=== PATIENT | male | born 1930 | race Caucasian/White ===

== ENCOUNTER 2018-01-20 13:08 | Inpatient (IN) ==
[2018-01-20] MEDS ORDERED: SODIUM CHLORIDE 0.9% 500 ML IV STA (13:48)
[2018-01-20] MEDS ORDERED: LEVOFLOXACIN INJ 500 MG in PREMIX 1 EACH IV STA ×2 (13:48→15:11)
[2018-01-20 13:56] LABS: Basophils % 0.3 % (0.0-0.8); Eosinophils # 0.1 10*3/uL (0.0-0.87); Eosinophils % 1.2 % (0.00-10.9); Hematocrit 23.6 VOL% (42.0-52.0); Hemoglobin 7.4 GM/DL (14.0-18.0); Immature Granulocytes % 0.6 %; Immature Granulocytes Absolute 0.04 #; Lymphocytes # 0.8 10*3/uL (1.4-4.0); Lymphocytes % 11.9 % (21.2-54.2); Mean Corpuscular HGB Conc 31.4 GM/DL (32-36); Mean Corpuscular Hemoglobin 34 PG (27-34); Mean Corpuscular Volume 108.8 FL (87-102); Mean Platelet Volume 10.1 FL (9.6-12.0); Monocytes # 0.5 10*3/uL (0.11-0.8); Monocytes % 6.7 % (1.7-12.7); Neutrophils # 5.5 10*3/uL (1.4-7.4); Neutrophils % 79.3 % (38.7-73.9); Platelet Count 224 T/CUMM (130-400); Red Blood Count 2.17 MC/CUMM (3.8-5.5); Red Cell Distribution Width 13.5 % (9.3-17.3); White Blood Count 6.9 T/CUMM (4-12)
[2018-01-20] MEDS ORDERED: ALBUTEROL 2.5 MG/3 ML NEB RESP TX STA (13:57)
[2018-01-20 14:15] LABS: INR 1.1; PT Patient Result 11.3 SECS; Partial Thromboplastin Time 30.7 SECS (0-40)
[2018-01-20 14:16] LABS: Alanine Aminotransferase 14 U/L (16-61); Albumin 2.6 G/DL (3.4-5.0); Alkaline Phosphatase 67 U/L (45-117); Aspartate Amino Transferase 7 U/L (0-37); Blood Urea Nitrogen 35 MG/DL (7-18); Calcium 8.8 MG/DL (8.5-10.1); Glucose 189 MG/DL (74-106); Osmolality,Calculated 289.5 MOS/KG (273-304); Potassium 4.3 MMOL/L (3.5-5.1); Sodium 139 MMOL/L (136-145); Total Protein 6.7 G/DL (6.4-8.3); Troponin I Only < 0.015 NG/ML (0.00-0.045)
[2018-01-20 14:25] LABS: Anisocytosis 1+; Band Neutrophils 20 % (0-10); Eosinophils 1 % (0-10); Lymphocytes 9 % (20-55); Macrocytosis Slight; Platelet Estimate Normal; Segmented Neutrophils 67 % (50-85); Total Cells Counted 100
[2018-01-20] MEDS ORDERED: methylPREDNISolone SOD SUC 125 MG/2 ML VIAL IV STA (15:11)
[2018-01-20] MEDS ORDERED: ACETAMINOPHEN 325 MG TABLET PO PRN (16:27)
[2018-01-20] MEDS ORDERED: DOCUSATE SODIUM 100 MG CAPSULE PO PRN (16:27)
[2018-01-20] MEDS ORDERED: ONDANSETRON 4 MG/2 ML VIAL IV PRN (16:27)
[2018-01-20] MEDS ORDERED: PANTOPRAZOLE 40 MG TABLET PO SCH (16:30)
[2018-01-20] MEDS ORDERED: CHLORPHENIRAMINE PO PRN (16:31)
[2018-01-20] MEDS ORDERED: [UNRECOGNIZED DRUG - OTHER] PO PRN (16:31)
[2018-01-20] MEDS ORDERED: PHENYLEPHRINE PO PRN (16:31)
[2018-01-20] MEDS ORDERED: DOCUSATE/SENNA 50-8.6 MG TABLET PO PRN (16:31)
[2018-01-20] MEDS ORDERED: GLUCAGON 1 MG VIAL IM PRN (16:37)
[2018-01-20] MEDS ORDERED: DEXTROSE 50% 25 GM/50 ML VIAL IV PRN (16:37)
[2018-01-20 17:09] LABS: Thyroid Stimulating Hormone 2.05 uIU/ml (0.358-3.74)
[2018-01-20 17:17] LABS: Folate 16.2 NG/ML (5.4-24.0)
[2018-01-20] MEDS ORDERED: SODIUM CHLORIDE 0.9% 1,000 ML IV PRN (17:54)
[2018-01-20] MEDS ORDERED: ALBUTEROL/IPRATROPIUM 3 ML NEB RESP TX PRN (18:20)
[2018-01-20] MEDS: CLOPIDOGREL 75 MG TABLET PO SCH (18:23)
[2018-01-20] MEDS: AZTREONAM 2,000 MG in SYRINGE 1 EACH IV SCH (18:24)
[2018-01-20 18:39] LABS: Basophils % 0.1 % (0.0-0.8); Eosinophils % 0.1 % (0.00-10.9); Hematocrit 26.6 VOL% (42.0-52.0); Hemoglobin 8.4 GM/DL (14.0-18.0); Immature Granulocytes % 0.7 %; Immature Granulocytes Absolute 0.05 #; Lymphocytes # 0.2 10*3/uL (1.4-4.0); Lymphocytes % 3.1 % (21.2-54.2); Mean Corpuscular HGB Conc 31.6 GM/DL (32-36); Mean Corpuscular Hemoglobin 34 PG (27-34); Mean Platelet Volume 10.1 FL (9.6-12.0); Monocytes # 0.1 10*3/uL (0.11-0.8); Monocytes % 1.3 % (1.7-12.7); Neutrophils % 94.7 % (38.7-73.9); Platelet Count 259 T/CUMM (130-400); Red Blood Count 2.44 MC/CUMM (3.8-5.5); Red Cell Distribution Width 13.7 % (9.3-17.3); White Blood Count 7.4 T/CUMM (4-12)
[2018-01-20] MEDS ORDERED: ALBUTEROL/IPRATROPIUM 3 ML NEB RESP TX SCH (19:00)
[2018-01-20 19:12] LABS: Apearance,Urine Slightly Hazy (Clear); Bacteria,Urine Many /HPF (Few); Bilirubin,Urine Negative (Negative); Blood, Urine Small mg/dL (Negative); Glucose,Urine (UA) Negative (Negative); Ketones,Urine Negative (Negative); Mucus,Urine Occasional /LPF (Occasional); Nitrite,Urine Negative (Negative); Protein,Urine 30 MG/DL; RBC,Urine 12 /HPF (0-4); Urine Color Yellow (Yellow); Urine Specific Gravity 1.014 (1.001-1.035); Urine Urobilinogen < 2.0 EU/DL (0.2-1.0); WBC,Urine 59 /HPF (0-6)
[2018-01-20 19:21] LABS: Folate 21.3 NG/ML (5.4-24.0); Vitamin B12 934 PG/ML (211-911)
[2018-01-20] MEDS: ALBUTEROL/IPRATROPIUM 3 ML NEB RESP TX SCH (19:43)
[2018-01-20] MEDS: methylPREDNISolone SOD SUC 40 MG/1 ML VIAL IV SCH (21:01)
[2018-01-20] MEDS: INSULIN LISPRO 100 UNIT/ML SUBCUT SCH (21:01)
[2018-01-20 21:02] LABS: Sedimentation Rate-Westergren 148 MM/HR (0-20)
[2018-01-20 22:58] LABS: Lymphocytes 2 % (20-55); Platelet Estimate Normal; Segmented Neutrophils 98 % (50-85); Total Cells Counted 100
[2018-01-21] MEDS: AZTREONAM 2,000 MG in SYRINGE 1 EACH IV SCH ×4 (01:02→18:50)
[2018-01-21] MEDS: methylPREDNISolone SOD SUC 40 MG/1 ML VIAL IV SCH ×4 (03:15→22:08)
[2018-01-21 06:08] LABS: Calcium 9.1 MG/DL (8.5-10.1); Osmolality,Calculated 292.4 MOS/KG (273-304); Potassium 4.5 MMOL/L (3.5-5.1)
[2018-01-21 07:20] LABS: Immature Granulocytes % 0.8 %; Immature Granulocytes Absolute 0.08 #; Lymphocytes # 0.2 10*3/uL (1.4-4.0); Lymphocytes % 2.5 % (21.2-54.2); Mean Corpuscular HGB Conc 32.6 GM/DL (32-36); Mean Corpuscular Hemoglobin 34 PG (27-34); Mean Platelet Volume 10.4 FL (9.6-12.0); Monocytes # 0.1 10*3/uL (0.11-0.8); Monocytes % 1.4 % (1.7-12.7); Neutrophils % 95.3 % (38.7-73.9); Platelet Count 261 T/CUMM (130-400); Red Blood Count 2.19 MC/CUMM (3.8-5.5); Red Cell Distribution Width 13.5 % (9.3-17.3); White Blood Count 9.5 T/CUMM (4-12)
[2018-01-21 07:23] LABS: Hemoglobin 7.5 GM/DL (14.0-18.0)
[2018-01-21] MEDS: ALBUTEROL/IPRATROPIUM 3 ML NEB RESP TX SCH ×4 (07:31→19:35)
[2018-01-21 07:49] LABS: Eosinophils 2 % (0-10); Lymphocytes 3 % (20-55); Segmented Neutrophils 95 % (50-85); Total Cells Counted 100
[2018-01-21 07:51] LABS: Macrocytosis 1+
[2018-01-21 07:52] LABS: Target Cells Few
[2018-01-21 07:54] LABS: Platelet Estimate Normal
[2018-01-21] MEDS: INSULIN LISPRO 100 UNIT/ML SUBCUT SCH ×4 (09:11→22:09)
[2018-01-21] MEDS: PANTOPRAZOLE 40 MG TABLET PO SCH (09:11)
[2018-01-21] MEDS: TAMSULOSIN 0.4 MG CAPSULE PO SCH (09:11)
[2018-01-21 09:23] LABS: Hemoglobin A1 (Alkaline) 98.3 % (96.5-98.5); Hemoglobin A2 (Alkaline) 1.7 % (1.5-3.5)
[2018-01-21] MEDS: MAGNESIUM OXIDE 400 MG TABLET PO SCH (12:33)
[2018-01-21] MEDS: LEVOFLOXACIN INJ 750 MG in PREMIX 1 EACH IV SCH (14:15)
[2018-01-21] MEDS: CLOPIDOGREL 75 MG TABLET PO SCH (17:49)
[2018-01-21 19:58] LABS: Hematocrit 28.4 VOL% (42.0-52.0); Hemoglobin 9.5 GM/DL (14.0-18.0)
[2018-01-22] MEDS: AZTREONAM 2,000 MG in SYRINGE 1 EACH IV SCH ×5 (00:28→23:58)
[2018-01-22] MEDS: methylPREDNISolone SOD SUC 40 MG/1 ML VIAL IV SCH ×4 (03:19→21:18)
[2018-01-22] MEDS: ALBUTEROL/IPRATROPIUM 3 ML NEB RESP TX SCH ×4 (07:15→19:37)
[2018-01-22] MEDS: INSULIN LISPRO 100 UNIT/ML SUBCUT SCH ×4 (09:24→21:32)
[2018-01-22] MEDS: TAMSULOSIN 0.4 MG CAPSULE PO SCH (09:25)
[2018-01-22] MEDS: PANTOPRAZOLE 40 MG TABLET PO SCH (09:25)
[2018-01-22] MEDS: LEVOFLOXACIN INJ 750 MG in PREMIX 1 EACH IV SCH (12:48)
[2018-01-22] MEDS: MAGNESIUM OXIDE 400 MG TABLET PO SCH (12:49)
[2018-01-22] MEDS: CLOPIDOGREL 75 MG TABLET PO SCH (16:28)
[2018-01-23] MEDS: methylPREDNISolone SOD SUC 40 MG/1 ML VIAL IV SCH ×2 (02:49→11:34)
[2018-01-23] MEDS: AZTREONAM 2,000 MG in SYRINGE 1 EACH IV SCH ×2 (06:09→15:55)
[2018-01-23 06:10] LABS: Basophils % 0.2 % (0.0-0.8); Hematocrit 30.8 VOL% (42.0-52.0); Hemoglobin 10.4 GM/DL (14.0-18.0); Immature Granulocytes % 1.2 %; Immature Granulocytes Absolute 0.08 #; Lymphocytes # 0.2 10*3/uL (1.4-4.0); Lymphocytes % 2.8 % (21.2-54.2); Mean Corpuscular HGB Conc 33.8 GM/DL (32-36); Mean Corpuscular Hemoglobin 33 PG (27-34); Mean Corpuscular Volume 97.5 FL (87-102); Mean Platelet Volume 10.8 FL (9.6-12.0); Monocytes # 0.2 10*3/uL (0.11-0.8); Monocytes % 2.8 % (1.7-12.7); Neutrophils # 6.1 10*3/uL (1.4-7.4); Platelet Count 239 T/CUMM (130-400); Red Blood Count 3.16 MC/CUMM (3.8-5.5); Red Cell Distribution Width 15.9 % (9.3-17.3); White Blood Count 6.5 T/CUMM (4-12)
[2018-01-23 06:34] LABS: Albumin 2.4 G/DL (3.4-5.0); Bilirubin,Total 0.5 MG/DL (0.2-1.0); Calcium 8.5 MG/DL (8.5-10.1); Osmolality,Calculated 297.7 MOS/KG (273-304); Potassium 4.3 MMOL/L (3.5-5.1); Total Protein 6.6 G/DL (6.4-8.3)
[2018-01-23] MEDS: ALBUTEROL/IPRATROPIUM 3 ML NEB RESP TX SCH ×3 (07:05→14:18)
[2018-01-23 07:23] LABS: Band Neutrophils 10 % (0-10); Hypochromasia 2+; Lymphocytes 4 % (20-55); Platelet Estimate Adequate; Segmented Neutrophils 86 % (50-85); Total Cells Counted 100
[2018-01-23] MEDS: PANTOPRAZOLE 40 MG TABLET PO SCH (09:22)
[2018-01-23] MEDS: TAMSULOSIN 0.4 MG CAPSULE PO SCH (09:22)
[2018-01-23] MEDS: INSULIN LISPRO 100 UNIT/ML SUBCUT SCH ×2 (09:22→15:55)
[2018-01-23 12:12] VITALS: BP 118/64
[2018-01-23] MEDS: MAGNESIUM OXIDE 400 MG TABLET PO SCH (15:55)
[2018-01-23] MEDS: LEVOFLOXACIN INJ 750 MG in PREMIX 1 EACH IV SCH (15:55)
== END 2018-01-23 15:20 | disposition home health service (06) | DRG 193 ==
LOC: EDUNIT# → EDBD → N.ED 13:08 → N.EDINP 16:21 → N.5E 17:05
PROVIDERS: ADMIT Internal Medicine Geriatric Medicine; ATTEND Internal Medicine Geriatric Medicine

== ENCOUNTER 2018-03-27 00:39 | Inpatient (IN) ==
[2018-03-27 01:58] LABS: Basophils % 0.3 % (0.0-0.8); Eosinophils % 0.2 % (0.00-10.9); Hematocrit 27.6 VOL% (42.0-52.0); Hemoglobin 8.8 GM/DL (14.0-18.0); Immature Granulocytes % 0.4 %; Immature Granulocytes Absolute 0.04 #; Lymphocytes # 0.4 10*3/uL (1.4-4.0); Lymphocytes % 3.9 % (21.2-54.2); Mean Corpuscular HGB Conc 31.9 GM/DL (32-36); Mean Corpuscular Hemoglobin 34 PG (27-34); Mean Corpuscular Volume 105.7 FL (87-102); Mean Platelet Volume 10.2 FL (9.6-12.0); Monocytes # 0.5 10*3/uL (0.11-0.8); Monocytes % 4.7 % (1.7-12.7); Neutrophils # 8.9 10*3/uL (1.4-7.4); Neutrophils % 90.5 % (38.7-73.9); Platelet Count 199 T/CUMM (130-400); Red Blood Count 2.61 MC/CUMM (3.8-5.5); Red Cell Distribution Width 14.6 % (9.3-17.3); White Blood Count 9.8 T/CUMM (4-12)
[2018-03-27 02:19] LABS: Band Neutrophils 5 % (0-10); Lymphocytes 8 % (20-55); Platelet Estimate Normal; Segmented Neutrophils 84 % (50-85); Total Cells Counted 100
[2018-03-27 02:20] LABS: Anisocytosis Slight; Macrocytosis 3+
[2018-03-27 02:24] LABS: Albumin 3.1 G/DL (3.4-5.0); Bilirubin,Total 0.4 MG/DL (0.2-1.0); Calcium 9.8 MG/DL (8.5-10.1); Osmolality,Calculated 288.1 MOS/KG (273-304); Potassium 4.5 MMOL/L (3.5-5.1); Total Protein 6.9 G/DL (6.4-8.3)
[2018-03-27] MEDS ORDERED: DEXTROSE 50% 25 GM/50 ML VIAL IV STA (03:36)
[2018-03-27] MEDS ORDERED: DEXTROSE 50% 25 GM/50 ML SYRINGE IV ONE (03:42)
[2018-03-27] MEDS: DEXTROSE 10% 1,000 ML IV SCH ×3 (04:35→13:48)
[2018-03-27] MEDS ORDERED: ACETAMINOPHEN 325 MG TABLET PO PRN (08:06)
[2018-03-27] MEDS ORDERED: DOCUSATE/SENNA 50-8.6 MG TABLET PO PRN (08:06)
[2018-03-27] MEDS ORDERED: ONDANSETRON 4 MG/2 ML VIAL IV PRN (08:06)
[2018-03-27] MEDS ORDERED: ALBUTEROL/IPRATROPIUM 3 ML NEB RESP TX PRN (08:06)
[2018-03-27] MEDS: TAMSULOSIN 0.4 MG CAPSULE PO SCH (08:21)
[2018-03-27] MEDS: PANTOPRAZOLE 40 MG TABLET PO SCH (08:21)
[2018-03-27 13:13] LABS: Apearance,Urine CLEAR (Clear); Bacteria,Urine Few /HPF (Few); Bilirubin,Urine Negative (Negative); Blood, Urine Negative (Negative); Glucose,Urine (UA) Negative (Negative); Ketones,Urine Negative (Negative); Mucus,Urine Occasional /LPF (Occasional); Nitrite,Urine Negative (Negative); Protein,Urine Negative; RBC,Urine 24 /HPF (0-4); Urine Color Yellow (Yellow); Urine Specific Gravity 1.013 (1.001-1.035); Urine Urobilinogen < 2.0 EU/DL (0.2-1.0); WBC,Urine 6 /HPF (0-6)
[2018-03-27] MEDS: CLOPIDOGREL 75 MG TABLET PO SCH (17:05)
[2018-03-28 07:21] LABS: Albumin 2.4 G/DL (3.4-5.0); Bilirubin,Total 0.5 MG/DL (0.2-1.0); Calcium 9.4 MG/DL (8.5-10.1); Potassium 4.7 MMOL/L (3.5-5.1); Total Protein 6.1 G/DL (6.4-8.3)
[2018-03-28] MEDS: PANTOPRAZOLE 40 MG TABLET PO SCH (08:08)
[2018-03-28] MEDS: TAMSULOSIN 0.4 MG CAPSULE PO SCH (08:08)
[2018-03-28] MEDS: MAGNESIUM OXIDE 400 MG TABLET PO SCH (11:40)
[2018-03-28] MEDS: DEXTROSE 10% 1,000 ML IV SCH (11:41)
[2018-03-28] MEDS: CLOPIDOGREL 75 MG TABLET PO SCH (16:40)
[2018-03-29 05:44] LABS: Basophils % 0.4 % (0.0-0.8); Eosinophils # 0.2 10*3/uL (0.0-0.87); Eosinophils % 2.9 % (0.00-10.9); Hematocrit 24.6 VOL% (42.0-52.0); Immature Granulocytes % 0.5 %; Immature Granulocytes Absolute 0.04 #; Lymphocytes # 0.6 10*3/uL (1.4-4.0); Mean Corpuscular HGB Conc 32.5 GM/DL (32-36); Mean Corpuscular Hemoglobin 34 PG (27-34); Mean Corpuscular Volume 103.4 FL (87-102); Mean Platelet Volume 10.2 FL (9.6-12.0); Monocytes # 0.7 10*3/uL (0.11-0.8); Monocytes % 8.4 % (1.7-12.7); Neutrophils # 6.3 10*3/uL (1.4-7.4); Neutrophils % 79.8 % (38.7-73.9); Platelet Count 173 T/CUMM (130-400); Red Blood Count 2.38 MC/CUMM (3.8-5.5); Red Cell Distribution Width 14.7 % (9.3-17.3); White Blood Count 7.9 T/CUMM (4-12)
[2018-03-29 06:11] LABS: Calcium 9.3 MG/DL (8.5-10.1); Osmolality,Calculated 284.5 MOS/KG (273-304)
[2018-03-29 06:35] LABS: Band Neutrophils 4 % (0-10); Eosinophils 6 % (0-10); Lymphocytes 14 % (20-55); Segmented Neutrophils 71 % (50-85); Total Cells Counted 100
[2018-03-29 06:36] LABS: Macrocytosis 3+; Platelet Estimate Normal
[2018-03-29] MEDS: TAMSULOSIN 0.4 MG CAPSULE PO SCH (08:56)
[2018-03-29] MEDS: PANTOPRAZOLE 40 MG TABLET PO SCH (08:56)
[2018-03-29] MEDS: MAGNESIUM OXIDE 400 MG TABLET PO SCH (11:16)
[2018-03-29 15:04] VITALS: BP 103/64
== END 2018-03-29 15:35 | DRG 637 ==
LOC: EDBD → EDUNIT# → N.ED 00:39 → SUATTDRO 05:41 → N.EDINP 05:41 → N.ICU 06:22 → N.5E 15:07
PROVIDERS: ADMIT Hospitalist; ATTEND Internal Medicine